=== PATIENT | male | born 1995 | race Caucasian/White ===

== ENCOUNTER 2016-08-19 21:08 | Emergency (ER) | payer BC ==
[~2016-08-19] VITALS: Ht 193 cm; Wt 92.6 kg
[~2016-08-19 21:08] MED LIST: ONDA4TAB7 SL
[2016-08-19 21:11] VITALS: TEMP 37; Ht 193 cm; Wt 92.6 kg
[2016-08-19] MEDS ORDERED: ONDANSETRON INJ 2 MG/ML 2 ML VIAL IV STA (21:48)
[2016-08-19] MEDS ORDERED: SODIUM CHLORIDE 0.9% 1000ML 1,000 ML IV ONE (22:00)
[2016-08-19] MEDS ORDERED: PANTOprazole INJ 40 MG in SYRINGE 0 ML IV ONE (22:00)
[2016-08-19 22:14] LABS: BASO % 0.6 %; BASO ABS # 0.03 K/uL (0-0.2); COMPLETE YES; EOS % 0.8 %; IG% 0.2 %; LYMPH % 29.5 %; LYMPH ABS # 1.41 K/uL (1.2-3.4); MEAN CELL VOLUME 90.7 fL (80-100); MEAN CORPUSCULAR HGB CONC 36.4 g/dl (32-36); MONO % 11.9 %; PLATELET COUNT 217 K/uL (130-400); RED BLOOD COUNT 4.63 M/uL (4.7-6.1); WHITE BLOOD COUNT 4.78 K/uL (4.8-10.8)
[2016-08-19 22:31] LABS: BUN/CREATININE RATIO 13.7 (10-20); CALCIUM 9.1 mg/dl (8.5-10.1); CREATININE 1.2 mg/dl (0.60-1.40); POTASSIUM 3.7 mmol/L (3.5-5.1)
[2016-08-19 22:39] LABS: INR 1.1 (0.9-1.1); PROTHROMBIN TIME (PATIENT) 11.6 SECONDS (9.0-12.0)
[2016-08-19 22:41] LABS: ALB/GLOB RATIO 1.1 (0.9-2); THYROID STIMULATING HORMONE 2.41 uIu/ml (0.300-4.500)
[2016-08-19 22:58] LABS: URINE APPEARANCE CLEAR (CLEAR); URINE BILIRUBIN NEG (NEG); URINE COLOR YELLOW; URINE NITRITE NEG (NEG); URINE SPECIFIC GRAVITY 1.016 (1.000-1.030); UROBILINOGEN NEG (NEG); ZZUR CULT IF INDIC CLEAN CATCH NO
--- NOTE | 2016-08-19 22:58 | DIAGNOSTIC IMAGING REPORT ---
PA CHEST WITH ABDOMINAL SERIES CLINICAL HISTORY: Hemoptysis. Cough. Nausea and vomiting. FINDINGS: A PA chest radiograph is compared to study dated 01/06/2015. Correlation is made with chest CT dated 05/22/2012. The cardiomediastinal silhouette is unremarkable. The lungs and pleural spaces are clear. No pneumothorax is seen. The bony thorax is grossly intact. Supine and erect abdominal radiographs are compared to study dated 01/06/2015 and correlated with abdominal CT dated 03/19/2013. Cholecystectomy clips are noted. There is a nonobstructed abdominal bowel gas pattern. No evidence of intraperitoneal free air is seen. There is mild colonic fecal retention. No abnormal abdominal calcifications are seen. The lumbosacral spine and bony pelvis appear intact. IMPRESSION: 1. No active disease in the chest. 2. Unremarkable abdominal radiographs. Electronically signed by: George Bedolla M.D. 08/19/2016 10:57 PM Dictated Date/Time: 08/19/2016 10:55 PM
[2016-08-19 22:59] LABS: MANUAL MICROSCOPIC REQUIRED? NO; REVIEW REQ? NO
[2016-08-19 23:03] LABS: LYME DISEASE AB IGG NEG (NEG); LYME DISEASE AB IGM NEG (NEG)
[2016-08-20] MEDS ORDERED: AZIT250T PO (00:22)
[2016-08-20] MEDS ORDERED: ONDA4TAB10 SL (00:22)
[2016-08-20] MEDS ORDERED: AZITHROMYCIN 250 MG TAB PO ONE (00:30)
[2016-08-20] MEDS ORDERED: ONDANSETRON HOME PACK 4MG OD TAB PO ONE (00:30)
[2016-08-20 00:45] VITALS: BP 128/75; PULSE 62; O2SAT 98
--- NOTE | 2016-08-20 02:33 | EMERGENCY ROOM VISIT NOTE ---
History First contact with patient: 21:36 Chief Complaint: ILLNESS Stated Complaint: HEADACHE,VOMITING BLOOD History of Present Illness The patient is a 20 year old male who presents to the Emergency Room with complaints of generalized illness, coughing, vomiting, and headache over the past 2 days. The patient states that he had a coughing episode this evening where he brought up a small amount of bright red blood. The patient states that he then had 2 episodes of emesis that were primarily water and food. He was not able to keep down fluids this evening, prompting his presentation to the emergency department. The patient has not had recent known exposure to disease. No fever or chills. No neck pain, chest pain, chest tightness, shortness of breath, or abdominal pain. He rates his discomfort a 5/10. Review of Systems More than 10 systems were reviewed and otherwise negative with the exception of history of present illness. Past Medical/Surgical History Medical Problems: (1) Appendectomy (2) Cholecystectomy (3) Tonsillectomy Family History No pertinent family history Social History Smoking Status: Never Smoker Alcohol Use: none Drug Use: none Marital Status: in relationship Housing Status: lives with family Occupation Status: [employer] student Current/Historical Medications Scheduled Azithromycin (Zithromax), 250 MG PO DAILY Ondasetron Odt (Zofran Odt), 4 MG SL Q6H Allergies Coded Allergies: Chlorpheniramine (Verified Allergy, Intermediate, HIVES/BECOMES AGGRESSIVE , 03/15/15) Phenylpropanolamine (Verified Allergy, Intermediate, HIVES/BECOMES AGGRESSIVE, 03/15/15) Physical Exam Vital Signs Date Time Temp Pulse Resp B/P Pulse Ox O2 Delivery O2 Flow Rate FiO2 08/20/16 00:45 62 18 128/75 98 08/19/16 23:52 76 18 132/69 96 Room Air 08/19/16 21:11 37.0 77 18 144/64 96 Room Air Pain Rating (0-10): 7.0 Physical Exam VITALS: Vitals are noted on the nurse's note and reviewed by myself. Vital signs stable. GENERAL: Well-developed, well-nourished, white male, who is in no acute distress and resting comfortably. Patient is cooperative with the examination. HEAD: Normocephalic atraumatic. EARS: External ear normal. External auditory canals clear, tympanic membranes pearly lozano without erythema or effusion bilaterally. EYES: Pupils equal round and reactive to light and accommodation. Conjunctivae without injection, sclerae without icterus. Extraocular movements intact. NOSE: Patent, turbinates without inflammation or discharge. MOUTH: Mucous membranes moist. Tonsils are not enlarged. Pharynx without erythema, blood, or exudate. Uvula midline. Airway patent. NECK: Supple without nuchal rigidity. No lymphadenopathy. No thyromegaly. Cervical spine is nontender. HEART: Regular rate and rhythm without murmurs gallops or rubs. LUNGS: Clear to auscultation bilaterally without wheezes, rales or rhonchi. No retractions or accessory muscle use. ABDOMEN: Positive normal bowel sounds x 4. Soft, nontender, without masses or organomegaly. No guarding or rebound tenderness. MUSCULOSKELETAL: No muscle atrophy, erythema, or edema noted. Full range of motion without joint tenderness in all extremities. Medical Decision & Procedures ER Provider Diagnostic Interpretation: PA CHEST WITH ABDOMINAL SERIES CLINICAL HISTORY: Hemoptysis. Cough. Nausea and vomiting. FINDINGS: A PA chest radiograph is compared to study dated 01/06/2015. Correlation is made with chest CT dated 05/22/2012. The cardiomediastinal silhouette is unremarkable. The lungs and pleural spaces are clear. No pneumothorax is seen. The bony thorax is grossly intact. Supine and erect abdominal radiographs are compared to study dated 01/06/2015 and correlated with abdominal CT dated 03/19/2013. Cholecystectomy clips are noted. There is a nonobstructed abdominal bowel gas pattern. No evidence of intraperitoneal free air is seen. There is mild colonic fecal retention. No abnormal abdominal calcifications are seen. The lumbosacral spine and bony pelvis appear intact. IMPRESSION: 1. No active disease in the chest. 2. Unremarkable abdominal radiographs. Laboratory Results 08/19/16 22:00 Red Blood Count 4.63, Mean Corpuscular Volume 90.7, Mean Corpuscular Hemoglobin 33.0, Mean Corpuscular Hemoglobin Concent 36.4, Mean Platelet Volume 9.0, Neutrophils (%) (Auto) 57.0, Lymphocytes (%) (Auto) 29.5, Monocytes (%) (Auto) 11.9, Eosinophils (%) (Auto) 0.8, Basophils (%) (Auto) 0.6, Neutrophils # (Auto ) 2.72, Lymphocytes # (Auto) 1.41, Monocytes # (Auto) 0.57, Eosinophils # (Auto ) 0.04, Basophils # (Auto) 0.03 08/19/16 22:00 Test 08/19/16 22:00 08/19/16 22:02 08/19/16 22:20 White Blood Count 4.78 K/uL (4.8-10.8) Red Blood Count 4.63 M/uL (4.7-6.1) Hemoglobin 15.3 g/dL (14.0-18.0) Hematocrit 42.0 % (42-52) Mean Corpuscular Volume 90.7 fL (80-100) Mean Corpuscular Hemoglobin 33.0 pg (25-34) Mean Corpuscular Hemoglobin Concent 36.4 g/dl (32-36) Platelet Count 217 K/uL (130-400) Mean Platelet Volume 9.0 fL (7.4-10.4) Neutrophils (%) (Auto) 57.0 % Lymphocytes (%) (Auto) 29.5 % Monocytes (%) (Auto) 11.9 % Eosinophils (%) (Auto) 0.8 % Basophils (%) (Auto) 0.6 % Neutrophils # (Auto) 2.72 K/uL (1.4-6.5) Lymphocytes # (Auto) 1.41 K/uL (1.2-3.4) Monocytes # (Auto) 0.57 K/uL (0.11-0.59) Eosinophils # (Auto) 0.04 K/uL (0-0.5) Basophils # (Auto) 0.03 K/uL (0-0.2) RDW Standard Deviation 39.8 fL (36.4-46.3) RDW Coefficient of Variation 12.1 % (11.5-14.5) Immature Granulocyte % (Auto) 0.2 % Immature Granulocyte # (Auto) 0.01 K/uL (0.00-0.02) Prothrombin Time 11.6 SECONDS (9.0-12.0) Prothromb Time International Ratio 1.1 (0.9-1.1) Activated Partial Thromboplast Time 27.1 SECONDS (21.0-31.0) Partial Thromboplastin Ratio 1.0 Anion Gap 11.0 mmol/L (3-11) Est Creatinine Clear Calc Drug Dose 119.5 ml/min Estimated GFR () 99.6 Estimated GFR (Non- 85.9 BUN/Creatinine Ratio 13.7 (10-20) Calcium Level 9.1 mg/dl (8.5-10.1) Total Bilirubin 0.5 mg/dl (0.2-1) Aspartate Amino Transf (AST/SGOT) 38 U/L (15-37) Alanine Aminotransferase (ALT/SGPT) 39 U/L (12-78) Alkaline Phosphatase 65 U/L (45-117) Total Protein 7.4 gm/dl (6.4-8.2) Albumin 3.8 gm/dl (3.4-5.0) Globulin 3.6 gm/dl (2.5-4.0) Albumin/Globulin Ratio 1.1 (0.9-2) Lipase 126 U/L (73-393) Thyroid Stimulating Hormone (TSH) 2.410 uIu/ml (0.300-4.500) Lyme Disease IgG Antibody NEG (NEG) Lyme Disease IgM Antibody NEG (NEG) Bedside D-Dimer 355 ng/mlFEU (0-450) Urine Color YELLOW Urine Appearance CLEAR (CLEAR) Urine pH 6.0 (4.5-7.5) Urine Specific [place] 1.016 (1.000-1.030) Urine Protein NEG (NEG) Urine Glucose (UA) NEG (NEG) Urine Ketones TRACE (NEG) Urine Occult Blood 2+ (NEG) Urine Nitrite NEG (NEG) Urine Bilirubin NEG (NEG) Urine Urobilinogen NEG (NEG) Urine Leukocyte Esterase NEG (NEG) Urine WBC (Auto) 1-5 /hpf (0-5) Urine RBC (Auto) 10-30 /hpf (0-4) Urine Hyaline Casts (Auto) 1-5 /lpf (0-5) Urine Epithelial Cells (Auto) 10-20 /lpf (0-5) Urine Bacteria (Auto) NEG (NEG) Medications Administered Medications (Trade) Dose Ordered Sig/Tammi Route Start Time Stop Time Status Last Admin Dose Admin Sodium Chloride (Nss 1000ml) 1,000 ml @ 999 mls/hr Q1H1M ONCE IV 08/19/16 22:00 08/19/16 23:00 DC 08/19/16 22:06 999 MLS/HR Ondansetron HCl 4 mg 4 mg NOW STAT IV 08/19/16 21:48 08/19/16 21:50 DC 08/19/16 22:17 4 MG Pantoprazole Sodium/Syringe (Protonix Inj/ Syringe) 10 ml @ 5 mls/min NOW ONCE IV 08/19/16 22:00 08/19/16 22:01 DC 08/19/16 22:17 5 MLS/MIN Ondansetron HCl (ZOFRAN ODT 4MG Home Pack) 1 homepack UD ONCE PO 08/20/16 00:30 08/20/16 00:31 DC 08/20/16 00:42 1 HOMEPACK Azithromycin (Zithromax Tab) 500 mg NOW ONCE PO 08/20/16 00:30 08/20/16 00:31 DC 08/20/16 00:42 500 MG ED Course Physical exam and history were performed. Nursing notes and EMR were reviewed. Patient appears to have illness with coughing and vomiting. The patient appears quite well on exam. He does not have significant objective findings today. IV access was established and labs were obtained. The patient was hydrated with normal saline and given Zofran for comfort. Abdominal chest x- rays were performed. The patient was reevaluated multiple times with course of his stay. His blood work is as above and was reviewed. He does not have significantly elevated white blood cell count, anemia, bandemia, or gross electrolyte imbalance. Lipase and transaminases are nondiagnostic. X-rays do not show acute findings in the chest or abdomen. The patient's d-dimer is negative. The patient remained in stable condition throughout the entirety of his emergency department stay. He did not have persistent or any worsening of his symptoms. Clinically he appears well for discharge home. His symptoms may be the result of a viral infection such as a bronchitis or gastroenteritis. He does not drink alcohol or abuse substances. 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 I will give him a course of Zithromax and Zofran. The patient is to follow with his primary care physician this week with any ongoing or persistent symptoms. Patient was otherwise invited him to the ER and was pleased with plan of care. The chart was completed utilizing [employer] Voice Recognition Software. Grammatical errors, random word insertions, pronoun errors, and incomplete sentences are an occasional consequence of this system due to software limitations, ambient noise, and hardware issues. Any formal questions or concerns about the content, text, or information contained within the body of this dictation should be directly addressed to the provider for clarification. . Medical Decision Differential diagnosis: Etiologies such as viral syndrome, otitis, pharyngitis, pneumonia, influenza, meningitis, urinary tract infection, sepsis, bacteremia, as well as others were entertained. Impression Primary Impression: Cough Additional Impression: Nausea and vomiting Departure Information Dispostion Home / Self-Care Condition FAIR Prescriptions Ondasetron Odt (ZOFRAN ODT) 4 Mg Tab 4 MG SL Q6H for Nausea, #12 TAB Prov: Nile Salguero PA-C 08/20/16 Azithromycin (Zithromax) 250 Mg Tab 250 MG PO DAILY for 4 Days, #4 TAB Prov: Nile Salguero PA-C 08/20/16 Forms HOME CARE DOCUMENTATION FORM, IMPORTANT VISIT INFORMATION Patient Instructions [facility] Additional Instructions You were seen and evaluated today on an emergency basis only. This is not a substitute for, or an effort to provide, complete comprehensive medical care. It is not possible to recognize and treat all injuries or illnesses in a single emergency department visit. For this reason it is recommended that you followup with your primary care physician in the next week for recheck of your condition. Take Zithromax 250 mg daily for the next 4 days. Zofran 1 tablet every 6 hrs as needed for nausea. You are welcome to return to the emergency department anytime with new, worsening, or concerning symptoms. Problem Qualifiers
== END 2016-08-20 00:45 | disposition home or self-care (01) ==
LOC: C.EDB 21:09 → C.EDA 08-20 00:45
DX: R05 Cough (principal); R11.2 Nausea with vomiting, unspecified; Z90.49 Acquired absence of other specified parts of digestive tract; Z98.890 Other specified postprocedural states; Z88.8 Allergy status to other drugs, medicaments and biological substances

== ENCOUNTER 2017-03-30 13:49 | Emergency (ER) | payer BC ==
[~2017-03-30] VITALS: Ht 193 cm; Wt 93.8 kg
[2017-03-30 14:00] VITALS: BP 135/81; TEMP 36.8; Ht 193 cm; Wt 93.8 kg
--- NOTE | 2017-03-30 14:14 | EMERGENCY ROOM VISIT NOTE ---
ED Visit Note First contact with patient: 14:03 CHIEF COMPLAINT: Finger injury HISTORY OF PRESENT ILLNESS: This 21-year-old male patient presents to the emergency department one day after injuring the left fourth finger while playing football. The patient rates the pain as aching and 2/10. The patient has limited range of motion of the finger at the DIP joint. No numbness or tingling. No lacerations. No other injuries. The patient has not had previous fracture to this finger. The patient has taken nothing for the pain. REVIEW OF SYSTEMS: A 6 system review of systems was completed with positives and pertinent negatives in the HPI. ALLERGIES: clorpheniramine MEDICATIONS: None PMH: Otherwise healthy SOCIAL HISTORY: Denies tobacco use, occasional EtOH use PHYSICAL EXAM: Vital Signs: Reviewed Nurse's notes, vital signs stable. GENERAL : 21-year-old male, in no acute distress, but appears to be in pain, well- developed, well-nourished. MUSCULOSKELETAL: There is no deformity of the left fourth finger. There is limited flexion at the DIP joint. Sensation in the fingers intact. Full flexion and extension at the PIP joint. No tenderness over the MCP joint. There is no ligamentous instability. There is no laceration. Capillary refill less than 2 seconds. No tenderness of the remaining fingers or hand. Full range of motion of the wrist. NEURO: Alert and oriented to person, place, and time. Normal sensation to light and sharp touch. EMERGENCY DEPARTMENT COURSE: I examined the patient. An x-ray of the left fourth finger was reviewed L FINGER(S) MIN 2 VIEWS ROUTINE CLINICAL HISTORY: L 4th finger pain at DIP ? fx was dislocated trauma COMPARISON: None. DISCUSSION: The bones and joint spaces appear intact. There is no evidence of fracture, dislocation or bony disease. There is no evidence for soft tissue swelling. IMPRESSION: Negative study. The above report was generated using voice recognition software. It may contain grammatical, syntax or spelling errors. Electronically signed by: Pete Quiñonez M.D. 03/30/2017 2:36 PM Dictated Date/Time: 03/30/2017 2:36 PM Upon reevaluation, the patient was resting comfortably. We discussed the results of his x-rays. He voiced understanding. The patient was discharged home in good condition. DIAGNOSIS: Left finger strain DISCHARGE INSTRUCTIONS: Ice and elevation for 24-48 hrs. Ibuprofen 600 mg and Tylenol 1000 mg every 6 hrs as needed for pain. You may gaetano tape the finger for comfort. Follow up with your family doctor or an orthopedic surgeon if symptoms persist in 5-7 days.
--- NOTE | 2017-03-30 14:37 | DIAGNOSTIC IMAGING REPORT ---
L FINGER(S) MIN 2 VIEWS ROUTINE CLINICAL HISTORY: L 4th finger pain at DIP ? fx was dislocated trauma COMPARISON: None. DISCUSSION: The bones and joint spaces appear intact. There is no evidence of fracture, dislocation or bony disease. There is no evidence for soft tissue swelling. IMPRESSION: Negative study. The above report was generated using voice recognition software. It may contain grammatical, syntax or spelling errors. Electronically signed by: Pete Quiñonez M.D. 03/30/2017 2:36 PM Dictated Date/Time: 03/30/2017 2:36 PM
[2017-03-30 15:18] VITALS: PULSE 64; O2SAT 99
== END 2017-03-30 15:19 | disposition home or self-care (01) ==
LOC: C.EDB 13:54 → C.EDD 15:19
DX: S69.82XA Other specified injuries of left wrist, hand and finger(s), initial encounter (principal); Y93.61 Activity, american tackle football